=== PATIENT | male | born 1930 | race Caucasian/White ===

== ENCOUNTER 2016-06-16 10:41 | Inpatient (IN) | payer MEDICARE ==
[~2016-06-16] VITALS: Ht 175.3 cm; Wt 81.8 kg
[2016-06-16 10:42] VITALS: BP 145/70
[2016-06-16 10:57] LABS: HEMOGLOBIN 13.5 g/dL (14.1-18.0); LYMPH # 0.8 K/mm3 (0.7-4.5); LYMPH % 12.5 % (10-50)
[2016-06-16] MEDS ORDERED: GOOD NEIGHBOR P20 M1 PO (11:05)
[2016-06-16] MEDS ORDERED: GALANTAMINE HYD12 MG PO (11:05)
[2016-06-16 11:06] LABS: URINE BILIRUBIN - DIPSTICK NEGATIVE (NEG); URINE BLOOD TRACE-INTACT (NEG)
[2016-06-16] MEDS ORDERED: ALFUZOSIN HYDRO10 MG PO (11:07)
[2016-06-16] MEDS ORDERED: FINASTERIDE5 MG PO (11:08)
[2016-06-16] MEDS ORDERED: LISINOPRIL40 MG PO (11:08)
[2016-06-16] MEDS ORDERED: METFORMIN500 MG PO (11:09)
[2016-06-16] MEDS ORDERED: SIMVASTATIN40 MG PO (11:10)
[2016-06-16] MEDS ORDERED: AMLODIPINE10 MG PO (11:10)
[2016-06-16] MEDS ORDERED: CLOPIDOGREL75 MG PO (11:11)
[2016-06-16] MEDS ORDERED: GLIPIZIDE10 MG PO (11:12)
[2016-06-16] MEDS ORDERED: DOCUSATE SODIU100 MG PO (11:12)
[2016-06-16] MEDS ORDERED: QUETIAPINE FUMA25 MG PO (11:13)
--- NOTE | 2016-06-16 12:26 | Emergency Room Report ---
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 NO VOMITING SINCE WEDNESDAY. DIAHERRA DURING THE NIGHT. 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 Y Clinical Suspician of Infection? N Mental Status: 1 - Regular (Normal Baseline) Sepsis Risk:Low Sepsis Risk Have you (or family members/close friends) recently traveled outside the [place]? N If Yes, where/when: Have you had exposure to infectious disease within the past month? TB? Other? Specify: Source patient, RN notes reviewed, family, RN/MD Exam Limitations no limitations Comment This is an 85-year-old male patient brought by ambulance from home, hereby with son and daughter. is advising patient has been seen in the emergency room at [facility] in [place], for same symptoms, but she was discharged home. Apparently the patient is here with intractable nausea, vomiting, diarrhea, generalized weakness and inability to stand and walk as a result of the above. Patient is a history of diabetes, and Alzheimer's dementia. he stated that she has not noticed her having any urinary output in the past 12 hours. 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 We have called the [facility] in [place], to see if they have any beds for possible transfer/admission. We are advised of the [facility] has no open beds at this time. ALLERGIES Coded Allergies: No Known Allergies (06/16/16) Home Medications Reported Medications Omeprazole 20 MG PO GALANTAMINE HBR (Galantamine HBr) 12 MG PO BID ALFUZOSIN HCL (Alfuzosin HCl ER) 10 MG PO AC Finasteride 5 MG PO DAILY Lisinopril (Lisinopril 40MG) 40 MG PO DAILY Metformin HCL (Metformin) 500 MG PO DAILY Simvastatin (Simvastatin 40MG Tab) 40 MG PO DAILY Amlodipine Besylate (Amlodipine) 10 MG PO DAILY CLOPIDOGREL BISULFATE (Clopidogrel 75MG) 75 MG PO DAILY Docusate Sodium 250 MG PO BID Glipizide 10 MG PO BID Quetiapine Fumarate (Quetiapine 25MG) 50 MG PO NIGHT ONLY History Medical History General Angina: No [place]: No Hypertension? Yes Hyperlipidemia? No CHF? No COPD? No Asthma? No CVA? No Seizures? No Diabetes? Yes Insulin Dependent: Yes Insulin Pump: No Home FSBS? Yes GB Disease: No MRSA? No TB? No Cancer? No More? Yes Additional hx: DEMENTIA, PROSTATE Immunization Hx DT/Tetanus 5-10 Years Ago Surgical Hx Previous Surgery?N Social History Smoking Hx Smoker: Former Smoker Tobacco: No Alcohol Alcohol: No Review of Systems All Other Systems Reviewed and Negative Gastrointestinal see HPI, diarrhea, nausea, vomiting Psychiatric/Neurological weakness Physical Exam Vital Signs Vital Signs Date Time Temp Pulse Resp B/P Pulse O2 O2 Flow FiO2 Ox Delivery Rate 06/16 1242 65 16 159/82 95 06/16 1152 65 16 160/89 95 06/16 1042 98.5 72 18 145/70 98 General Appearance normal appearance, WD/WN, no apparent distress Eye Exam - bilateral eye normal exam, bilateral eye PERRL, bilateral eye EOMI Neck normal inspection, non-tender, supple, full range of motion Respiratory Status Yes: trachea midline, chest symmetrical, non tender chest. No: respiratory distress. Lung Sounds bilateral: normal breath sounds, lungs clear. 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 Mental status normal mood/affect Skin intact, normal color, warm/dry, increased skin turgor Medical Decision Making LABS/Meds/Orders Pt receiving controlled substance in ED? No Comment 12;30pm-case discussed with Dr. Rose, advised the patient's presentation, symptoms, physical examination, blood work and electrocardiogram obtained. Since patient is unable to stand up and walk, even after IV hydration, decision is made this time to place patient in observation. Care transferred to Dr. Rose at this time. I will write temporary bridge admit orders, per hospital policy. Once patient arrives to floor, supervisor microfilm duplicating unit will call Dr. Rose for full admit orders. After departing from the emergency room, and prior to arriving on the floor the patient will have additional imaging studies, consistent with a noncontrast brain CT, as well as a CT abdomen and pelvis without contrast only. Following one bolus of 1000 and crystalloid patient has a modest urinary output, consistent with [address] Rose to follow up on Ct results. Results/Orders Laboratory Tests 06/16/16 1120: Lactic Acid 1.4 06/16/16 1100: Urine Color YELLOW, Urine Appearance CLEAR, Urine pH 6.0, Ur Specific [place] 1.020, Urine Protein NEGATIVE, Urine Ketones NEGATIVE, Urine Blood TRACE-INTACT, Urine Nitrate NEGATIVE, Urine Bilirubin NEGATIVE, Urine Urobilinogen 1.0, Ur Leukocyte Esterase NEGATIVE, Urine RBC 3-5, Urine WBC OCC, Urine Bacteria 1+, Urine Mucus OCC, Urine Glucose NEGATIVE 06/16/16 1035: Sodium 137, Potassium 3.3 L, Chloride 101, Carbon Dioxide 29, BUN 14, Creatinine 1.0, Estimated Creat Clear 61, Estimated GFR (MDRD) 71, Glucose 113 H, Calcium 8.2 L, Total Bilirubin 0.3, AST 17, ALT 23, Alkaline Phosphatase 78, Creatine Kinase 76, CK and CKMB Interp 0.8, Troponin I 0.02, Total Protein 6.7, Albumin 3.5, Globulin 3.2, Albumin/Globulin Ratio 1.1, WBC 6.5, RBC 4.34 L, Hgb 13.5 L, Hct 39.4 L, MCV 90.7, RDW 14.0, Plt Count 247, MPV 8.5, Gran % 76.8, Gran # 5.0, Lymphocytes % 12.5, Monocytes % 9.4 H, Eosinophils % 0.8, Basophils % 0.5, Lymphocytes # 0.8, Monocytes # 0.6, Eosinophils # 0.1, Basophils # 0.0, PUBS MCHC 34.3, MCH 31.1 Current Medication Orders Sig/Margaret Start time Last Medication Dose Route Stop Time Status Admin Sodium Chloride 1,000 ML .STK-MED ONE 06/16 1222 DC IV Sodium Chloride 1,000 ML .Q1H1M 06/16 1215 AC 06/16 IV 06/16 1315 1228 Sodium Chloride 10 ML PRN PRN 06/16 1215 AC IV 06/17 1203 Sodium Chloride 1,000 ML .STK-MED ONE 06/16 1208 DC IV Ondansetron HCl 4 MG ONCE ONE 06/16 1100 DC 06/16 IV 06/16 1101 1057 Sodium Chloride 10 ML PRN PRN 06/16 1100 AC IV 06/17 1048 Ondansetron HCl 0 .STK-MED ONE 06/16 1056 DC .ROUTE Orders Procedure Date/time Status CT ABD/PELVIS REQ 06/16 1243 Active Decision to admit 06/16 1218 Active CULTURE, BLOOD 06/16 1052 Active LACTIC ACID 06/16 1052 Complete CLOSTRIDIUM DIFFICLE TOXIN A,B 06/16 1051 Active URINARY CATHETER INSERT 06/16 1050 Active URINALYSIS/COMPLETE 06/16 1050 Complete DIARRHEA PANEL, PCR 06/16 1050 Active ELECTROCARDIOGRAM REQUEST 06/16 1049 Active IV SALINE LOCK 06/16 1049 Active FEED ELEVATOR WORKER 06/16 1049 Active TROPONIN I 06/16 1049 Complete CPK 06/16 1049 Complete COMPLETE METABOLIC PANEL 06/16 1049 Complete CKMB 06/16 1049 Complete CBC WITH AUTO DIFF 06/16 1049 Complete 12 LEAD EKG-JACK (INITIAL) 06/16 UNK Active 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 of ischemic chgs, no ectopy, normal QRS, normal [place] Departure Departure Time of Disposition 1230 Disposition Still a Patient Clinical Impression Primary Impression: Generalized weakness Secondary Impressions: Dehydration, Gastroenteritis, Hypokalemia Condition STABLE ED Critical Care Critical Care No at 1313
--- NOTE | 2016-06-16 12:26 | Emergency Room Report ---
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 NO VOMITING SINCE WEDNESDAY. DIAHERRA DURING THE NIGHT. 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 Y Clinical Suspician of Infection? N Mental Status: 1 - Regular (Normal Baseline) Sepsis Risk:Low Sepsis Risk Have you (or family members/close friends) recently traveled outside the [place]? N If Yes, where/when: Have you had exposure to infectious disease within the past month? TB? Other? Specify: Source patient, RN notes reviewed, family, RN/MD Exam Limitations no limitations Comment This is an 85-year-old male patient brought by ambulance from home, hereby with son and daughter. is advising patient has been seen in the emergency room at [facility] in [place], for same symptoms, but she was discharged home. Apparently the patient is here with intractable nausea, vomiting, diarrhea, generalized weakness and inability to stand and walk as a result of the above. Patient is a history of diabetes, and Alzheimer's dementia. he stated that she has not noticed her having any urinary output in the past 12 hours. 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 We have called the [facility] in [place], to see if they have any beds for possible transfer/admission. We are advised of the [facility] has no open beds at this time. ALLERGIES Coded Allergies: No Known Allergies (06/16/16) Home Medications Reported Medications Omeprazole 20 MG PO GALANTAMINE HBR (Galantamine HBr) 12 MG PO BID ALFUZOSIN HCL (Alfuzosin HCl ER) 10 MG PO AC Finasteride 5 MG PO DAILY Lisinopril (Lisinopril 40MG) 40 MG PO DAILY Metformin HCL (Metformin) 500 MG PO DAILY Simvastatin (Simvastatin 40MG Tab) 40 MG PO DAILY Amlodipine Besylate (Amlodipine) 10 MG PO DAILY CLOPIDOGREL BISULFATE (Clopidogrel 75MG) 75 MG PO DAILY Docusate Sodium 250 MG PO BID Glipizide 10 MG PO BID Quetiapine Fumarate (Quetiapine 25MG) 50 MG PO NIGHT ONLY History Medical History General Angina: No [place]: No Hypertension? Yes Hyperlipidemia? No CHF? No COPD? No Asthma? No CVA? No Seizures? No Diabetes? Yes Insulin Dependent: Yes Insulin Pump: No Home FSBS? Yes GB Disease: No MRSA? No TB? No Cancer? No More? Yes Additional hx: DEMENTIA, PROSTATE Immunization Hx DT/Tetanus 5-10 Years Ago Surgical Hx Previous Surgery?N Social History Smoking Hx Smoker: Former Smoker Tobacco: No Alcohol Alcohol: No Review of Systems All Other Systems Reviewed and Negative Gastrointestinal see HPI, diarrhea, nausea, vomiting Psychiatric/Neurological weakness Physical Exam Vital Signs Vital Signs Date Time Temp Pulse Resp B/P Pulse O2 O2 Flow FiO2 Ox Delivery Rate 06/16 1242 65 16 159/82 95 06/16 1152 65 16 160/89 95 06/16 1042 98.5 72 18 145/70 98 General Appearance normal appearance, WD/WN, no apparent distress Eye Exam - bilateral eye normal exam, bilateral eye PERRL, bilateral eye EOMI Neck normal inspection, non-tender, supple, full range of motion Respiratory Status Yes: trachea midline, chest symmetrical, non tender chest. No: respiratory distress. Lung Sounds bilateral: normal breath sounds, lungs clear. 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 Mental status normal mood/affect Skin intact, normal color, warm/dry, increased skin turgor Medical Decision Making LABS/Meds/Orders Pt receiving controlled substance in ED? No Comment 12;30pm-case discussed with Dr. Rose, advised the patient's presentation, symptoms, physical examination, blood work and electrocardiogram obtained. Since patient is unable to stand up and walk, even after IV hydration, decision is made this time to place patient in observation. Care transferred to Dr. Rose at this time. I will write temporary bridge admit orders, per hospital policy. Once patient arrives to floor, community organization worker will call Dr. Rose for full admit orders. After departing from the emergency room, and prior to arriving on the floor the patient will have additional imaging studies, consistent with a noncontrast brain CT, as well as a CT abdomen and pelvis without contrast only. Following one bolus of 1000 and crystalloid patient has a modest urinary output, consistent with [address] Rose to follow up on Ct results. Results/Orders Laboratory Tests 06/16/16 1120: Lactic Acid 1.4 06/16/16 1100: Urine Color YELLOW, Urine Appearance CLEAR, Urine pH 6.0, Ur Specific [place] 1.020, Urine Protein NEGATIVE, Urine Ketones NEGATIVE, Urine Blood TRACE-INTACT, Urine Nitrate NEGATIVE, Urine Bilirubin NEGATIVE, Urine Urobilinogen 1.0, Ur Leukocyte Esterase NEGATIVE, Urine RBC 3-5, Urine WBC OCC, Urine Bacteria 1+, Urine Mucus OCC, Urine Glucose NEGATIVE 06/16/16 1035: Sodium 137, Potassium 3.3 L, Chloride 101, Carbon Dioxide 29, BUN 14, Creatinine 1.0, Estimated Creat Clear 61, Estimated GFR (MDRD) 71, Glucose 113 H, Calcium 8.2 L, Total Bilirubin 0.3, AST 17, ALT 23, Alkaline Phosphatase 78, Creatine Kinase 76, CK and CKMB Interp 0.8, Troponin I 0.02, Total Protein 6.7, Albumin 3.5, Globulin 3.2, Albumin/Globulin Ratio 1.1, WBC 6.5, RBC 4.34 L, Hgb 13.5 L, Hct 39.4 L, MCV 90.7, RDW 14.0, Plt Count 247, MPV 8.5, Gran % 76.8, Gran # 5.0, Lymphocytes % 12.5, Monocytes % 9.4 H, Eosinophils % 0.8, Basophils % 0.5, Lymphocytes # 0.8, Monocytes # 0.6, Eosinophils # 0.1, Basophils # 0.0, PUBS MCHC 34.3, MCH 31.1 Current Medication Orders Sig/Margaret Start time Last Medication Dose Route Stop Time Status Admin Sodium Chloride 1,000 ML .STK-MED ONE 06/16 1222 DC IV Sodium Chloride 1,000 ML .Q1H1M 06/16 1215 AC 06/16 IV 06/16 1315 1228 Sodium Chloride 10 ML PRN PRN 06/16 1215 AC IV 06/17 1203 Sodium Chloride 1,000 ML .STK-MED ONE 06/16 1208 DC IV Ondansetron HCl 4 MG ONCE ONE 06/16 1100 DC 06/16 IV 06/16 1101 1057 Sodium Chloride 10 ML PRN PRN 06/16 1100 AC IV 06/17 1048 Ondansetron HCl 0 .STK-MED ONE 06/16 1056 DC .ROUTE Orders Procedure Date/time Status CT ABD/PELVIS REQ 06/16 1243 Active Decision to admit 06/16 1218 Active CULTURE, BLOOD 06/16 1052 Active LACTIC ACID 06/16 1052 Complete CLOSTRIDIUM DIFFICLE TOXIN A,B 06/16 1051 Active URINARY CATHETER INSERT 06/16 1050 Active URINALYSIS/COMPLETE 06/16 1050 Complete DIARRHEA PANEL, PCR 06/16 1050 Active ELECTROCARDIOGRAM REQUEST 06/16 1049 Active IV SALINE LOCK 06/16 1049 Active PARAKEET RAISER 06/16 1049 Active TROPONIN I 06/16 1049 Complete CPK 06/16 1049 Complete COMPLETE METABOLIC PANEL 06/16 1049 Complete CKMB 06/16 1049 Complete CBC WITH AUTO DIFF 06/16 1049 Complete 12 LEAD EKG-JACK (INITIAL) 06/16 UNK Active 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 of ischemic chgs, no ectopy, normal QRS, normal [place] Departure Departure Time of Disposition 1230 Disposition Still a Patient Clinical Impression Primary Impression: Generalized weakness Secondary Impressions: Dehydration, Gastroenteritis, Hypokalemia Condition STABLE ED Critical Care Critical Care No at 1313
--- NOTE | 2016-06-16 13:15 | HISTORY AND PHYSICAL REPORT ---
History and Physical ([facility]) Date of admission: 06/16/16 Chief complaint: Weakness, vomiting, diarrhea History: History of Present Illness: Mr. Eli is an 85yo white male patient of the [facility] with a hx of Alzheimer's, HTN, GERD, and previous CVA. He began having vomiting on Wednesday. This resolved and he started with diarrhea yesterday. He went to the [facility] ER and was given some fluids and sent home. The family was told they did not have any beds available. According to his family he has been extremely weak. He normally can use a cane or walker at home but he has been so weak he has been unable to walk. His only complaint is of LLQ abdominal pain. He was evaluated in the ER and felt to have a gastroenteritis and was admitted for rehydration. Past Medical History: Medical History: CAD? No Angina: No [place]: No Hypertension? Yes Hyperlipidemia? Yes CHF? No DVT? No PE? No COPD? No Asthma? No Anemia? No GERD? Yes Gastric ulcers? No GI Bleed? No Thyroid Problems? No Hypothyroidism? No CVA? Yes Seizures? No Diabetes? Yes Insulin Dependent: No Insulin Pump: No Home FSBS? Yes Renal Insuffiency? No BPH? Yes GB Disease: No MRSA? No TB? No Cancer? No More? Yes Additional hx: 1. Alzheimer's Surgical history: Previous Surgery?N Allergies: Coded Allergies: No Known Allergies (06/16/16) Family History: Family history: Postive for: CAD, HTN, cancer. Negative for: DM, stroke. Social History: Smoking Hx Tobacco: No Smoker: Former Smoker Type: N/A Packs/day: N/A Are you exposed to second hand No Alcohol: Alcohol: No Hx of Drug Use: Drug Use? No Review of Systems: Constitutional Positive for: fatigue, lethargy, malaise, weak. ENT No: nasal congestion, sore throat. Cardiovascular No: chest pain, palpitations. Respiratory No: shortness of air, productive cough (sputum), wheezing. GI Positive for: abdominal pain (LLQ), diarrhea, nausea, vomitting. (male) No: frequency, hematuria. Neurological Positive for: confusion (d/t dementia), weakness. No: syncope. Musculoskeletal No: extremity pain, joint pain, myalgias. Physical Exam: Vital signs: 1ST Vital Signs Result Date Time Pulse Ox 98 01/03 104 B/P 145/70 06/16 104 Temp 98.5 06/16 104 Pulse 72 06/16 1042 Resp 18 06/16 104 Exam: General appearance: alert, awake, no acute distress Eyes: EOM's w/normal ROM, PERRLA ENT: nose normal, pharynx normal, cerumen in ear canal, dry mucous membranes Neck: non-tender, full range of motion, supple Cardiovascular: regular rate & rhythm Respiratory: clear to auscultation ABD: non-distended, normal bowel sounds, no rebound, soft, no guarding, ttp in the LLQ Extremities: no peripheral edema Musculoskeletal: equal muscle strength, motor intact, sensation intact, slight left sided weakness from previous CVA Skin: normal color Neuro: pt confused but able to answer questions Lab data: Labs: Laboratory Tests 06/16/16 1120: Lactic Acid 1.4 06/16/16 1100: Urine Color YELLOW, Urine Appearance CLEAR, Urine pH 6.0, Ur Specific [place] 1.020, Urine Protein NEGATIVE, Urine Ketones NEGATIVE, Urine Blood TRACE-INTACT, Urine Nitrate NEGATIVE, Urine Bilirubin NEGATIVE, Urine Urobilinogen 1.0, Ur Leukocyte Esterase NEGATIVE, Urine RBC 3-5, Urine WBC OCC, Urine Bacteria 1+, Urine Mucus OCC, Urine Glucose NEGATIVE 06/16/16 1035: Sodium 137, Potassium 3.3 L, Chloride 101, Carbon Dioxide 29, BUN 14, Creatinine 1.0, Estimated Creat Clear 61, Estimated GFR (MDRD) 71, Glucose 113 H, Calcium 8.2 L, Total Bilirubin 0.3, AST 17, ALT 23, Alkaline Phosphatase 78, Creatine Kinase 76, CK and CKMB Interp 0.8, Troponin I 0.02, Total Protein 6.7, Albumin 3.5, Globulin 3.2, Albumin/Globulin Ratio 1.1, WBC 6.5, RBC 4.34 L, Hgb 13.5 L, Hct 39.4 L, MCV 90.7, RDW 14.0, Plt Count 247, MPV 8.5, Gran % 76.8, Gran # 5.0, Lymphocytes % 12.5, Monocytes % 9.4 H, Eosinophils % 0.8, Basophils % 0.5, Lymphocytes # 0.8, Monocytes # 0.6, Eosinophils # 0.1, Basophils # 0.0, PUBS MCHC 34.3, MCH 31.1 Microbiology 06/16 1130 BLOOD: Anaerobic Blood Culture - CAN Cancelled: @DUPLICATE ORDER 06/16 1130 BLOOD: Aerobic Blood Culture - CAN Cancelled: @DUPLICATE ORDER 06/16 1120 BLOOD: Anaerobic Blood Culture - RECD 06/16 1120 BLOOD: Aerobic Blood Culture - RECD 06/16 1120 BLOOD: Anaerobic Blood Culture - RECD 06/16 1120 BLOOD: Aerobic Blood Culture - RECD Radiology results: Results: CT abdomen and head - pending Diagnosis(es): 1. Gastroenteritis Status: Acute 2. Hypokalemia Status: Acute 3. Dehydration Status: Acute 4. History of CVA (cerebrovascular accident) Status: Chronic 5. Hypertension Status: Chronic 6. Hyperlipidemia Status: Chronic Plan: Awaiting CT results. Pt has already been started on IVF's and zofran for nausea and vomiting. Will get a diarrhea panel as well. (Mariah Guevara) Date of admission: 06/16/16 Past Medical History: Medications: Reported Medications ALFUZOSIN HCL (Alfuzosin HCl ER) 10 MG PO DAILY Polyethylene Glycol 3350 (Miralax) 17 GM PO PRN PRN CONSTIPATION Carbamide Peroxide 15 ML OT 7XDAY Vitamin E Mixed (Vitamin E) 200 UNIT PO DAILY CHOLECALCIFEROL (VITAMIN D3) (Vitamin D) 1,000 UNIT PO DAILY Omeprazole 20 MG PO GALANTAMINE HBR (Galantamine HBr) 12 MG PO BID Finasteride 5 MG PO DAILY Lisinopril (Lisinopril 40MG) 40 MG PO DAILY Metformin HCL (Metformin) 500 MG PO DAILY Simvastatin (Simvastatin 40MG Tab) 40 MG PO DAILY Amlodipine Besylate (Amlodipine) 10 MG PO DAILY CLOPIDOGREL BISULFATE (Clopidogrel 75MG) 75 MG PO DAILY Docusate Sodium 250 MG PO BID Glipizide 10 MG PO BID Quetiapine Fumarate (Quetiapine 25MG) 50 MG PO NIGHT ONLY Diagnosis(es): 1. Rotavirus enteritis 2. Gastroenteritis Status: Acute 3. Hypokalemia Status: Acute 4. Dehydration Status: Acute 5. History of CVA (cerebrovascular accident) Status: Chronic 6. Hypertension Status: Chronic 7. Hyperlipidemia Status: Chronic 8. Alzheimer's dementia Plan: Patient seen and examined. His stool panel has returned showing Rotavirus. His notes he is more alert this afternoon than he has been for past 2 days. He is currently eating supper and tolerating OK. CARPENTER INSPECTOR elizabeth noted. Will continue with supportive care. Replace K+. (Nadia Rose MD) at 1314 at [id number]
--- NOTE | 2016-06-16 13:26 | PHARMACY CLINIC NOTE ---
Patient Demographics Patient Demographics Admission date: 06/16/16 Date: 06/16/16 Time: 1325 Allergies Coded Allergies: No Known Allergies (06/16/16) HEIGHT- FT: 5 IN: 10.00 K.380 VTE General Information Labs: Laboratory Tests 06/16 1035 Hematology Hgb (14.1 - 18.0 g/dL) 13.5 L Hct (42.0 - 52.0 %) 39.4 L Plt Count (142 - 424 K/mm3) 247 Disclaimer The following section includes nursing documentation that has been pulled in for pharmacy review. Clinical trial participant? No VTE prophylaxis [id number] VTE prophylaxis ordered? Yes Type of prophylaxis/treatment: HEMALATHA at 132
--- NOTE | 2016-06-16 13:26 | PHARMACY CLINIC NOTE ---
Patient Demographics Patient Demographics Admission date: 06/16/16 Date: 06/16/16 Time: 1325 Allergies Coded Allergies: No Known Allergies (06/16/16) HEIGHT- FT: 5 IN: 10.00 K.380 VTE General Information Labs: Laboratory Tests 06/16 1035 Hematology Hgb (14.1 - 18.0 g/dL) 13.5 L Hct (42.0 - 52.0 %) 39.4 L Plt Count (142 - 424 K/mm3) 247 Disclaimer The following section includes nursing documentation that has been pulled in for pharmacy review. Clinical trial participant? No VTE prophylaxis [id number] VTE prophylaxis ordered? Yes Type of prophylaxis/treatment: HEMALATHA at 1326
[2016-06-16 14:14] VITALS: BP 159/82
[2016-06-16 14:52] LABS: AEROMONAS NOT DETECTED (NOT DETECTE); ASTROVIRUS NOT DETECTED (NOT DETECTE); CYCLOSPORA CAYETANENSIS NOT DETECTED (NOT DETECTE); E COLI O157 NOT DETECTED (NOT DETECTE); ENTEROAGGREGATIVE E COLI NOT DETECTED (NOT DETECTE); ENTEROPATHOGENIC E COLI NOT DETECTED (NOT DETECTE); ENTEROTOXIGENIC E COLI NOT DETECTED (NOT DETECTE); NOROVIRUS NOT DETECTED (NOT DETECTE); SAPOVIRUS NOT DETECTED (NOT DETECTE); SHIGA-LIKE TOXIN PROD. E COLI NOT DETECTED (NOT DETECTE); SHIGELLA/ENTEROINVASIVE E COLI NOT DETECTED (NOT DETECTE); VIBRIO CHOLERAE NOT DETECTED (NOT DETECTE)
[2016-06-16 14:53] VITALS: BP 140/69
--- NOTE | 2016-06-16 15:06 | RADIOLOGY REPORT PS360 ---
CT HEAD-W/WO CONTRAST INDICATION: Generalized weakness with confusion and dementia ABDOMEN PAIN, VOMITING, DIARRHEA, GENERAL WEAKNESS COMPARISON: None TECHNIQUE: Axial images are obtained without and with contrast. FINDINGS: There is diffuse generalized atrophy with ventriculomegaly. There is moderate prominence of the temporal horns of the lateral ventricles. The atrophy is somewhat greater in the temporal region. Low density changes are present in the periventricular area consistent with ischemic gliotic change from microvascular disease. 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 No midline shift or mass effect. No enhancing lesion or acute intracranial hemorrhage. No acute calvarial abnormality, sinus air-fluid level, or mastoid effusion. IMPRESSION: 1. No acute intracranial pathology. 2. Atrophy with chronic ischemic changes. 3. There is ventriculomegaly somewhat greater in the temporal horns but may be related to the generalized volume loss. Normal pressure hydrocephalus is felt to be less likely but not totally excluded. Please correlate with clinical findings.
--- NOTE | 2016-06-16 15:13 | RADIOLOGY REPORT PS360 ---
CT ABD PELVIS W/ CONTRAST CLINICAL INDICATION: ABDOMEN PAIN, VOMITING, DIARRHEA, GENERAL WEAKNESS COMPARISON: None TECHNIQUE: Axial images obtained with sagittal and coronal reformats. PROCEDURE: Oral Contrast: None IV Contrast: 75 mL [id number] . FINDINGS: There are mild atelectatic changes in the lung bases. No focal liver lesion evident. The gallbladder is distended and contains gallstones. No obvious biliary dilatation. The pancreas, adrenal glands, and spleen have an unremarkable appearance. No hydronephrosis evident. Left renal vascular calcifications are noted. No evidence of aneurysm. Unremarkable appendix. There is a Gomez catheter present. Urinary bladder decompressed. Diverticulosis of the colon throughout the colon. Is greater in the sigmoid region. No evidence of diverticulitis. No intestinal obstruction or free air. Much of the colon is fluid-filled with air-fluid levels but is nondistended. IMPRESSION: 1. Distended gallbladder with cholelithiasis. Fairly large laminated gallstone is noted measuring approximately 4 cm. 2. Diverticulosis. 3. Scattered air-fluid levels within nondistended large bowel which may be seen with diarrhea disease
[2016-06-16] MEDS ORDERED: MIRALAX17 GM/PACK PO (15:52)
[2016-06-16] MEDS ORDERED: CARBAMIDE PEROX15 ML OT (15:54)
[2016-06-16] MEDS ORDERED: VITAMIN E200 UNI2 PO (15:55)
[2016-06-16] MEDS ORDERED: NATURE'S BLEN1000 IU PO (15:56)
--- NOTE | 2016-06-16 16:07 | ST BEDSIDE DYSPHAGIA EVAL ---
SUBJECTIVE-DYSPHAGIA Date: 06/16/16 Time: 1530 Eval Type: Initial Certification - Admitted Date: 06/16/16 Primary Diagnosis: WEAKNESS, DEHYDRATION Reason for Consult: DYSPHAGIA Pt/Caregiver Concerns: COUGHING WHEN EATING AND DRINKING Onset of symptoms- 06/13/16 MEDICAL HX UNKNOWN Symptoms have worsened? NO improved? NO resolved? NO since onset. Current Diet: NPO Allergies Coded Allergies: No Known Allergies (06/16/16) Home Medications Reported Medications ALFUZOSIN HCL (Alfuzosin HCl ER) 10 MG PO AC Polyethylene Glycol 3350 (Miralax) 17 GM PO PRN PRN CONSTIPATION Omeprazole 20 MG PO GALANTAMINE HBR (Galantamine HBr) 12 MG PO BID Finasteride 5 MG PO DAILY Lisinopril (Lisinopril 40MG) 40 MG PO DAILY Metformin HCL (Metformin) 500 MG PO DAILY Simvastatin (Simvastatin 40MG Tab) 40 MG PO DAILY Amlodipine Besylate (Amlodipine) 10 MG PO DAILY CLOPIDOGREL BISULFATE (Clopidogrel 75MG) 75 MG PO DAILY Docusate Sodium 250 MG PO BID Glipizide 10 MG PO BID Quetiapine Fumarate (Quetiapine 25MG) 50 MG PO NIGHT ONLY Is this assessment r/t stroke? No OBJECTIVE COMMUNICATION/COGNITION Barriers to communication/cog? Yes Orientation POS: Name. NEG: Place, Day, Date, Year. Follows Commands POS: Follows 1-step commands. NEG: Follows 2-step commands. Able to remember swallow strategies? No Intelligibility Fair Barriers to communication: CONFUSION ORAL-MOTOR STRUCTURE/FUNCTION Structure/Function WFL: Labial, Buccal, Lingual, Velar, Mandibular. Facial Asymmetry None Laryngeal Function Strong: Voluntary Cough, Throat Clearing. Vocal Quality Normal Dentition Edentulous Comments MR. BLOOD DOES WEAR DENTURES, HOWEVER THEY ARE NOT AVAILABLE AT THIS TIME. RESPIRATORY STATUS/HISTORY Is resp status/hx a concern? Yes Requires Oxygen: Cannula Breathes from mouth? No Risk-fatigue due to comp.resp? No DYSPHAGIA SIGNS W/CONSISTENCY Any S/S of Dysphagia? No ASSESSMENT/PLAN ASSESSMENT Impression Mr. Eli, an 85 year old male, was referred for a bedside evaluation of swallow. His reports that he gets choked at home when eating and drinking and complains of "something stuck". He wears dentures however he does not have them available at this time. Decreased orientation was noted. Mr. Eli was given the following consistencies: thins via straw and open cup and mechanical soft. No signs of dysphagia were noted with these consistencies however it is recommended that Mr. Eli drink from a straw to aid while he is confused. Mr. Eli will be monitored for possible diet upgrades once he has his dentures available to him. At this time, speech therapy is not warranted. If problems continue, it is recommended that Mr. Eli have a MBS to rule out aspiration. PLAN SWALLOW GUIDELINES Standard Aspiration Prec., Liquids Given (Straw Only), Assist w/All Meals, SIT UPRIGHT DURING MEALS AND 30 MINUTES AFTER PATIENT/CAREGIVER EDUCATION Able-recall/restate what told? No Pt unable to ind. understands due to mental status RN educated on Diet Consistency, Swallow Guidelines Rehab Medicare G Code Plan Medicare/G Code eligible? 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
[2016-06-16 16:28] VITALS: BP 158/77
[2016-06-16 20:04] VITALS: BP 163/76
[2016-06-16 21:00] VITALS: BP 163/76
[2016-06-17] VITALS (7 sets, daily range): BP systolic 108–160; BP diastolic 55–79
[2016-06-17 07:09] LABS: HEMOGLOBIN 12.5 g/dL (14.1-18.0); LYMPH # 0.7 K/mm3 (0.7-4.5); LYMPH % 13.5 % (10-50)
--- NOTE | 2016-06-17 08:13 | ACUTE CARE PROGRESS NOTE (QUA) ---
See Addendum Progress Notes Subjective Date 06/17/16 Time 0809 Note Pt has been agitated this am d/t his catheter. He wants it out. He states his stomach still hurts off and on. According to his daughter, his diarrhea has slowed. He has not had any vomiting and was trying to eat breakfast this am. Objective Findings Last VS-Temp:98.8 B/P:108/60 Pulse:73 Resp:20 SaO2:94 ROOM AIR Last weight lbs:180 oz:4 K.761 Method:Bed Scales Laboratory Tests 06/17/16 0629: POC Glucose 109 06/17/16 0618: Sodium 137, Potassium 3.1 L, Chloride 104, Carbon Dioxide 25, BUN 7, Creatinine 0.8, Estimated Creat Clear 78, Estimated GFR (MDRD) 92, Glucose 111 H, Calcium 7.6 L, WBC 5.1, RBC 4.01 L, Hgb 12.5 L, Hct 36.2 L, MCV 90.3, RDW 13.7, Plt Count 236, MPV 8.3, Gran % 75.5, Gran # 3.9, Lymphocytes % 13.5, Monocytes % 9.0 , Eosinophils % 1.1, Basophils % 0.9, Lymphocytes # 0.7, Monocytes # 0.5, Eosinophils # 0.1, Basophils # 0.1, PUBS MCHC 34.6, MCH 31.3 H 06/16/16 1955: Creatine Kinase 80, CK-MB (CK-2) Rel Index 1.0, CK and CKMB Interp 0.8, Troponin I < 0.02 06/16/16 1648: POC Glucose 125 H 06/16/16 1452: Stl Cyclospora species NOT DETECTED, Stool Rotavirus (PCR) DETECTED H, Stool Campylobacter PCR NOT DETECTED, Stool Giardia Lamblia PCR NOT DETECTED, Stl Norovirus GI/GII PCR NOT DETECTED, Adenovirus (PCR) NOT DETECTED, C. difficile Tox (PCR) NOT DETECTED, E. coli (PCR) NOT DETECTED, Yersinia (PCR) NOT DETECTED 06/16/16 1410: Creatine Kinase 76, CK-MB (CK-2) Rel Index 0.7, CK and CKMB Interp < 0.5, Troponin I 0.02 06/16/16 1120: Lactic Acid 1.4 06/16/16 1100: Urine Color YELLOW, Urine Appearance CLEAR, Urine pH 6.0, Ur Specific [place] 1.020, Urine Protein NEGATIVE, Urine Ketones NEGATIVE, Urine Blood TRACE-INTACT, Urine Nitrate NEGATIVE, Urine Bilirubin NEGATIVE, Urine Urobilinogen 1.0, Ur Leukocyte Esterase NEGATIVE, Urine RBC 3-5, Urine WBC OCC, Urine Bacteria 1+, Urine Mucus OCC, Urine Glucose NEGATIVE 06/16/16 1035: Sodium 137, Potassium 3.3 L, Chloride 101, Carbon Dioxide 29, BUN 14, Creatinine 1.0, Estimated Creat Clear 61, Estimated GFR (MDRD) 71, Glucose 113 H, Calcium 8.2 L, Total Bilirubin 0.3, AST 17, ALT 23, Alkaline Phosphatase 78, Creatine Kinase 76, CK and CKMB Interp 0.8, Troponin I 0.02, Total Protein 6.7, Albumin 3.5, Globulin 3.2, Albumin/Globulin Ratio 1.1, WBC 6.5, RBC 4.34 L, Hgb 13.5 L, Hct 39.4 L, MCV 90.7, RDW 14.0, Plt Count 247, MPV 8.5, Gran % 76.8, Gran # 5.0, Lymphocytes % 12.5, Monocytes % 9.4 H, Eosinophils % 0.8, Basophils % 0.5, Lymphocytes # 0.8, Monocytes # 0.6, Eosinophils # 0.1, Basophils # 0.0, PUBS MCHC 34.3, MCH 31.1 Microbiology 06/16 1129 BLOOD: Anaerobic Blood Culture - CAN Cancelled: @DUPLICATE ORDER 06/16 1129 BLOOD: Aerobic Blood Culture - CAN Cancelled: @DUPLICATE ORDER 06/16 1119 BLOOD: Anaerobic Blood Culture - RECD 06/16 1119 BLOOD: Aerobic Blood Culture - RECD 06/16 1119 BLOOD: Anaerobic Blood Culture - RECD 06/16 1119 BLOOD: Aerobic Blood Culture - RECD Exam General appearance: awake, no acute distress, agitated with eaton Cardiovascular: regular rate & rhythm Respiratory: clear to auscultation ABD: non-distended, normal bowel sounds, no rebound, soft, no guarding, ttp in the LLQ Extremities: no peripheral edema Reviewed: Abd CT - distended GB with cholelithiasis Head CT - nothing acute Assessment/Plan Problem List 1. Rotavirus enteritis Status: Acute 2. Gastroenteritis Status: Acute 3. Hypokalemia Status: Acute 4. Dehydration Status: Acute 5. History of CVA (cerebrovascular accident) Status: Chronic 6. Hypertension Status: Chronic 7. Hyperlipidemia Status: Chronic 8. Alzheimer's dementia 9. Cholelithiasis Plan: Pt was positive for rotavirus and also has cholelithiasis. His symptoms have improved. Will remove eaton today and consult PT to see if patient is able to walk with a walker or cane as he was used to doing at home. Will replace potassium. This inpt stay is expected to cross 2 MNs from start of care Yes (Mariah Guevara) Subjective Date 06/17/16 Time 0900 Assessment/Plan Problem List 1. Rotavirus enteritis Status: Acute 2. Gastroenteritis Status: Acute 3. Hypokalemia Status: Acute 4. Dehydration Status: Acute 5. History of CVA (cerebrovascular accident) Status: Chronic 6. Hypertension Status: Chronic 7. Hyperlipidemia Status: Chronic 8. Alzheimer's dementia 9. Cholelithiasis Plan: Patient seen and examined. Concur with above. Possibly discharge home later today if he is able to transfer and ambulate. (Nadia Rose MD) at 0813 at 0902
[2016-06-17] MEDS ORDERED: KLOR-CON M2020 MEQ PO (15:23)
--- NOTE | 2016-06-23 16:14 | DISCHARGE SUMMARY STANDARD ---
Discharge Summary (FCA2) Date of admission: 06/16/16 Date of discharge: 06/17/16 Problem List: 1. Rotavirus enteritis 2. Gastroenteritis 3. Hypokalemia 4. Dehydration 5. History of CVA (cerebrovascular accident) 6. Hypertension 7. Hyperlipidemia 8. Alzheimer's dementia 9. Cholelithiasis History of present illness: History of Present Illness: Mr. Eli is an 85yo white male patient of the [facility] with a hx of Alzheimer's, HTN, GERD, and previous CVA. He began vomiting on Wednesday. This resolved and he started with diarrhea. He went to the [facility] and was given some fluids and sent home. The family was told they did not have any beds available. According to his family he has been extremely weak. He normally can use a cane or walker at home but he was so weak he had been unable to walk. His only complaint was of LLQ abdominal pain. He was evaluated in [facility] ER and felt to have a gastroenteritis and was admitted for rehydration. Exam on admission: Vital signs: 1ST Vital Signs Result Date Time Pulse Ox 98 06/16 1042 B/P 145/70 06/16 1042 Temp 98.5 06/16 1042 Pulse 72 06/16 1042 Resp 18 06/16 1042 Exam: General appearance: alert, awake, no acute distress Eyes: EOM's w/normal ROM, PERRLA ENT: nose normal, pharynx normal, cerumen in ear canal, dry mucous membranes Neck: non-tender, full range of motion, supple Cardiovascular: regular rate & rhythm Respiratory: clear to auscultation ABD: non-distended, normal bowel sounds, no rebound, soft, no guarding, ttp in the LLQ Extremities: no peripheral edema Musculoskeletal: equal muscle strength, motor intact, sensation intact, slight left sided weakness from previous CVA Skin: normal color Neuro: pt confused but able to answer questions Hospital Course: At admission patient was started on IVF and Zofran for nausea and vomiting. He was more alert after this and began to eat. K+ was replaced. He was seen by speech pathologist who recommended standard aspiration precautions. He was restless due to eaton catheter and this was removed. The diarrhea slowed and he was eating without vomiting. Stool studies revealed Rotavirus. PT was consulted and noted need for maximum assistance. Family felt they could care for him at home. With the improvement of his symptoms he was stable to be discharged in the PM of 06/17/16 with a Home Health referral. Laboratory data this visit: 06/16/16 1120: Lactic Acid 1.4 06/16/16 1100: Urine Color YELLOW, Urine Appearance CLEAR, Urine pH 6.0, Ur Specific [place] 1.020, Urine Protein NEGATIVE, Urine Ketones NEGATIVE, Urine Blood TRACE-INTACT, Urine Nitrate NEGATIVE, Urine Bilirubin NEGATIVE, Urine Urobilinogen 1.0, Ur Leukocyte Esterase NEGATIVE, Urine RBC 3-5, Urine WBC OCC, Urine Bacteria 1+, Urine Mucus OCC, Urine Glucose NEGATIVE 06/16/16 1035: Sodium 137, Potassium 3.3 L, Chloride 101, Carbon Dioxide 29, BUN 14, Creatinine 1.0, Estimated Creat Clear 61, Estimated GFR (MDRD) 71, Glucose 113 H, Calcium 8.2 L, Total Bilirubin 0.3, AST 17, ALT 23, Alkaline Phosphatase 78, Creatine Kinase 76, CK and CKMB Interp 0.8, Troponin I 0.02, Total Protein 6.7, Albumin 3.5, Globulin 3.2, Albumin/Globulin Ratio 1.1, WBC 6.5, RBC 4.34 L, Hgb 13.5 L, Hct 39.4 L, MCV 90.7, RDW 14.0, Plt Count 247, MPV 8.5, Gran % 76.8, Gran # 5.0, Lymphocytes % 12.5, Monocytes % 9.4 H, Eosinophils % 0.8, Basophils % 0.5, Lymphocytes # 0.8, Monocytes # 0.6, Eosinophils # 0.1, Basophils # 0.0, PUBS MCHC 34.3, MCH 31.1 Microbiology 06/16 1129 BLOOD: Anaerobic Blood Culture - CAN Cancelled: @DUPLICATE ORDER 06/16 1129 BLOOD: Aerobic Blood Culture - CAN Cancelled: @DUPLICATE ORDER 06/16 1119 BLOOD: Anaerobic Blood Culture - RECD 06/16 1119 BLOOD: Aerobic Blood Culture - RECD 06/16 1119 BLOOD: Anaerobic Blood Culture - RECD 06/16 1119 BLOOD: Aerobic Blood Culture - RECD 06/17/16 0618: Sodium 137, Potassium 3.1 L, Chloride 104, Carbon Dioxide 25, BUN 7, Creatinine 0.8, Estimated Creat Clear 78, Estimated GFR (MDRD) 92, Glucose 111 H, Calcium 7.6 L, WBC 5.1, RBC 4.01 L, Hgb 12.5 L, Hct 36.2 L, MCV 90.3, RDW 13.7, Plt Count 236, MPV 8.3, Gran % 75.5, Gran # 3.9, Lymphocytes % 13.5, Monocytes % 9.0 , Eosinophils % 1.1, Basophils % 0.9, Lymphocytes # 0.7, Monocytes # 0.5, Eosinophils # 0.1, Basophils # 0.1, PUBS MCHC 34.6, MCH 31.3 H 06/16/16 1955: Creatine Kinase 80, CK-MB (CK-2) Rel Index 1.0, CK and CKMB Interp 0.8, Troponin I < 0.02 06/16/16 1648: POC Glucose 125 H 06/16/16 1452: Stl Cyclospora species NOT DETECTED, Stool Rotavirus (PCR) DETECTED H, Stool Campylobacter PCR NOT DETECTED, Stool Giardia Lamblia PCR NOT DETECTED, Stl Norovirus GI/GII PCR NOT DETECTED, Adenovirus (PCR) NOT DETECTED, C. difficile Tox (PCR) NOT DETECTED, E. coli (PCR) NOT DETECTED, Yersinia (PCR) NOT DETECTED 06/16/16 1410: Creatine Kinase 76, CK-MB (CK-2) Rel Index 0.7, CK and CKMB Interp < 0.5, Troponin I 0.02 Imaging: CT of head 06/16/16 IMPRESSION: 1. No acute intracranial pathology. 2. Atrophy with chronic ischemic changes. 3. There is ventriculomegaly somewhat greater in the temporal horns but may be related to the generalized volume loss. Normal pressure hydrocephalus is felt to be less likely but not totally excluded. Please correlate with clinical findings. 06/16/16 CT of abdomen and pelvis IMPRESSION: 1. Distended gallbladder with cholelithiasis. Fairly large laminated gallstone is noted measuring approximately 4 cm. 2. Diverticulosis. 3. Scattered air-fluid levels within nondistended large bowel which may be seen with diarrhea disease Discharge medications: Continue taking these medications: Omeprazole (Omeprazole) 20 MG TABLET.DR 20 MILLIGRAM ORAL DAILY GALANTAMINE HBR (Galantamine HBr) 12 MG TABLET 12 MILLIGRAM ORAL TWICE A DAY ALFUZOSIN HCL (Alfuzosin HCl ER) 10 MG TAB.ER.24H 10 MILLIGRAM ORAL DAILY Instructions: TAKE IMMEDIATELY FOLLOWING A MEAL Finasteride (Finasteride) 5 MG TABLET 5 MILLIGRAM ORAL DAILY Lisinopril (Lisinopril 40MG) 40 MG TABLET 40 MILLIGRAM ORAL DAILY Metformin HCL (Metformin) 500 MG TABLET 500 MILLIGRAM ORAL DAILY Simvastatin (Simvastatin 40MG Tab) 40 MG TABLET 40 MILLIGRAM ORAL DAILY Amlodipine Besylate (Amlodipine) 10 MG TABLET 10 MILLIGRAM ORAL DAILY CLOPIDOGREL BISULFATE (Clopidogrel 75MG) 75 MG TABLET 75 MILLIGRAM ORAL DAILY Docusate Sodium (Docusate Sodium) 100 MG CAPSULE 250 MILLIGRAM ORAL TWICE A DAY Glipizide (Glipizide) 10 MG TABLET 10 MILLIGRAM ORAL TWICE A DAY Quetiapine Fumarate (Quetiapine 25MG) 25 MG TABLET 50 MILLIGRAM ORAL NIGHT ONLY Polyethylene Glycol 3350 (Miralax) 17 GM POWD.PACK 17 GRAM ORAL As Needed as needed for CONSTIPATION Carbamide Peroxide (Carbamide Peroxide) 15 ML DROPS 15 MILLILITER OTIC 7XDAY Vitamin E Mixed (Vitamin E) 200 UNIT TABLET 200 UNIT ORAL DAILY CHOLECALCIFEROL (VITAMIN D3) (Vitamin D) 1,000 UNIT TABLET 1,000 UNIT ORAL DAILY Start taking the following new medications: Potassium Chloride (Klor-Con M20) 20 MEQ TAB.ER.PRT 20 Milliequivalent ORAL TWICE A DAY Qty = 60 No Refills Disposition: Discharged to home in stable and fair condition. Meds as per reconciliation sheet. He was to continue with the same diet and activity level. [facility] already in place. [facility]16
== END 2016-06-17 16:30 | disposition home or self-care (01) | DRG 392 ==
LOC: ER 10:41 → 2ND 12:42 → ER 12:42 → 2ND 12:44 → EDBD 13:14 → 2ND 13:14
PROVIDERS: Emergency Medicine; Family Medicine
DX: A08.0 Rotaviral enteritis (principal); I69.351 Hemiplegia and hemiparesis following cerebral infarction affecting right dominant side; G30.9 Alzheimer's disease, unspecified; F02.80 Dementia in other diseases classified elsewhere, unspecified severity, without behavioral disturbance, psychotic disturbance, mood disturbance, and anxiety; E87.6 Hypokalemia; E86.0 Dehydration; K80.20 Calculus of gallbladder without cholecystitis without obstruction; I10 Essential (primary) hypertension
CPT/HCPCS: J2405; Q9967